=== PATIENT | female | born 1965 | race Caucasian/White ===

== ENCOUNTER 2017-03-21 05:36 | Emergency (ER) | payer MEDICARE ==
--- NOTE | 2017-03-21 19:08 | ER ---
ADMIT: 03/21/2017 RM/LOC: ER [facility] MR#: [id number] [address] [address] ROBERT GARCIA [address] [place] [address] Emergency Room Report SEX: F AGE: 51 : 1965 DATE: 03/21/2017 HISTORY OF PRESENT ILLNESS: The patient is a 51-year-old female with past medical history of PTSD, bipolar, GERD, ovarian cyst, asthma, Crohn, and ulcerative colitis, came to the ER with chief complaint of 3 days of diarrhea and nausea and vomiting and some vague and intermittent right upper quadrant and sometimes epigastric abdominal pain. The patient denies any fever also. PHYSICAL EXAMINATION: GENERAL: The patient is in no obvious distress, the patient is afebrile, sitting in bed, quietly. HEAD and NECK: Normal. CHEST: Clear to auscultation. HEART: Normal heart sounds. ABDOMEN: Soft without any tenderness. Adams sign is negative. There is no CVA tenderness. The rest of the physical exam is noncontributory. EMERGENCY ROOM COURSE: The patient received IV fluid and morphine and Zofran for controlling the symptoms. At this stage, the patient was re-examined and abdominal exam was benign. The patient has stable vitals. The patient can be discharged home with return precautions with diagnosis of acute gastroenteritis and with empiric therapy of ciprofloxacin p.o. for 3 days, to be followed up by the primary care doctor as needed. Reuben Hancock MD/ morgan JOB #: [id number] CC: Reuben Hancock MD, Attending Physician . [facility]
== END 2017-03-21 07:03 | disposition home or self-care (01) ==
LOC: ER 05:36
DX: K52.9 Noninfective gastroenteritis and colitis, unspecified (principal); F17.210 Nicotine dependence, cigarettes, uncomplicated; K21.9 Gastro-esophageal reflux disease without esophagitis; F31.9 Bipolar disorder, unspecified; J45.909 Unspecified asthma, uncomplicated; Z90.710 Acquired absence of both cervix and uterus

== ENCOUNTER → 2017-04-26 | Outpatient (CLI) | payer OTHER, MEDICARE | END | disposition home or self-care (01) | LOC: RAD.S 16:00 | DX: R60.0 Localized edema (principal); Z86.79 Personal history of other diseases of the circulatory system ==

== ENCOUNTER 2017-07-25 11:50 | Emergency (ER) | payer OTHER, MEDICARE ==
--- NOTE | 2017-07-26 09:55 | ER ---
ADMIT: 07/25/2017 RM/LOC: ER [facility] MR#: [id number] [address] [address] ROBERT GARCIA [address] [place] [address] Emergency Room Report SEX: F AGE: 51 : 1965 DATE: 07/25/2017 CHIEF COMPLAINT: Right hip pain. HISTORY OF PRESENT ILLNESS: A 51-year-old female presents to the ER complaining of right hip pain. States she has had this pain for well over a year. She follows at the [facility]. She has seen her primary care provider as well as an orthopedic surgeon. She has had CTs, x-rays, and MRIs completed. She had a thorough workup. She is subsequently been referred to Pain Management Dr. Whitney Elias. She is to see him later this month. She currently has oxycodone prescribed to her 1 tab p.o. every 6 hours as needed for pain as well as several other pain medicines that are non narcotics. Denies any sensory loss in the extremity. She does feel like it is weak, significant pain with ambulation. PAST MEDICAL HISTORY: Depression, bipolar, and hyperlipidemia. COURSE IN THE EMERGENCY ROOM: The patient was seen examined. GENERAL: Afebrile, nontoxic. She is in moderate amount of distress. She is quite anxious. EXTREMITIES: Examination of the right extremity reveals a surgical scar. She says she has had a vein stripping done. She has pain with log roll of the right lower extremity. She has tenderness to palpation over the right hip in the inguinal fold. No lateral hip tenderness. There is no pedal edema. Extremity itself is warm, dry. She has good distal pulses. CHEST: Nontender. HEART: Regular. ABDOMEN: Soft and nontender. SKIN: Warm and dry. NEUROPSYCH: She is alert and oriented. Neuro is grossly intact. She is quite anxious. I had a long discussion with the patient at bedside regarding management of her pain. She has had a very extensive thorough workup. There is not much I could add at this point as she has had multiple imaging modalities as well as evaluation by Orthopedic Surgery. I do believe the best thing for her at this point is visiting with the environmental monitoring specialist. She states she has ADMIT: 07/25/2017 RM/LOC: [facility] MR#: [id number] [id number] [address] ROBERT GARCIA [address] [place] [address] Emergency Room Report SEX: F AGE: 51 : 1965 only taken one of her oxycodone today. I recommended that she take this medication as prescribed. She states she has Crohn disease, so she has limited ability to use anti-inflammatories. I recommended continued conservative care with ice, heat, gentle range of motion, and stretching. CLINICAL IMPRESSION: Chronic right hip pain. DISPOSITION: Discharged home. She is to continue to use her oxycodone as prescribed by her primary care provider. Ice, heat baths as needed. Gentle range of motion and stretching. She is to follow up with paint prep technician as scheduled. She was discharged home in stable condition. MARIBEL Dobson / Ken Foster MD / maggiel JOB #: [id number] CC: Ken Foster MD, Attending Physician [facility] Physician, Family Physician
== END 2017-07-25 12:50 | disposition home or self-care (01) ==
LOC: ER 11:50
DX: M25.551 Pain in right hip (principal); G89.29 Other chronic pain; F32.9 Major depressive disorder, single episode, unspecified; E78.5 Hyperlipidemia, unspecified; F17.210 Nicotine dependence, cigarettes, uncomplicated; Z90.49 Acquired absence of other specified parts of digestive tract; Z90.710 Acquired absence of both cervix and uterus; Z98.890 Other specified postprocedural states; Z88.1 Allergy status to other antibiotic agents; Z88.2 Allergy status to sulfonamides; Z79.899 Other long term (current) drug therapy